=== PATIENT | female | born 1955 | race Caucasian/White ===

== ENCOUNTER 2023-10-01 19:06 | Inpatient (IN) | payer MEDICARE, SELFPAY ==
[2023-10-01 21:10] LABS: #Monocytes 0.7 10x3/uL (0.0-1.1); %Basophils 0.7 % (0.0-2.0); %Eosinophils 0.7 % (0.0-6.0); %Lymphocytes 20.8 % (18.0-47.0); %Monocytes 11.7 % (0.0-10.0); %Neutrophils 65.9 % (40.0-75.0); Hematocrit 45.7 % (34.9-44.5); Hemoglobin 15.7 g/dL (12.0-15.5); Mean Corpuscular HGB CONC 34.4 g/dL (32.0-36.0); Mean Corpuscular Hemoglobin 29.7 pg (27.0-33.0); Mean Corpuscular Volume 86.6 fl (81.6-98.3); Mean Platelet Volume 9.5 fl (7.4-10.4); Platelet Count 321 10x3/uL (150-450); RBC Distribution Width 12.7 % (11.5-14.5); Red Blood Cell (RBC) Count 5.28 10x6/uL (3.90-5.03); White Blood Cell (WBC) Count 6.1 10x3/uL (3.5-10.5)
[2023-10-01 21:21] LABS: Bilirubin 3+ (Negative); Blood, Urine 150 (Negative); Clarity Clear (Clear); Glucose, Urine (Dipstick) Normal (Negative); Ketone, Urine 150 mg/dL (Negative); Leukocyte 25 (Negative); Nitrite Negative (Negative); Protein, Urine (Dipstick) 30 mg/dl (Neg-Trace); Specific Gravity, Urine 1.025 (1.005-1.030)
[2023-10-01 21:27] LABS: ALT (SGPT) 870 U/L (8-55); AST (SGOT) 578 U/L (5-34); Albumin 5.1 g/dL (3.4-4.8); Alkaline Phosphatase 179 U/L (40-110); Anion Gap 16 mmol/L (10-20); BUN (Urea Nitrogen) 8 mg/dL (9.8-20.1); Bilirubin, Total 3.9 mg/dL (0.2-1.2); Calc. Creatinine Clearance 0 mL/min (70-130); Calcium 10.3 mg/dL (7.8-10.44); Carbon Dioxide 23 mmol/L (23-31); Chloride 102 mmol/L (98-107); Estimated GFR 93; Globulin 3.5 g/dL (2.4-3.5); Glucose 100 mg/dL (80-115); Lipase 37 U/L (8-78); Magnesium 2.5 mg/dL (1.6-2.6); Potassium 3.3 mmol/L (3.5-5.1); Protein, Total 8.6 g/dL (5.8-8.1); Sodium 138 mmol/L (136-145)
[2023-10-01 21:28] LABS: Troponin I Less than 0.010 ng/mL (< 0.028)
[2023-10-01] MEDS ORDERED: Ondansetron PF 4 MG/2 ML Vial ONE (21:41)
[2023-10-01] MEDS ORDERED: Morphine 4 MG/ML VIAL ONE (21:42)
[2023-10-01 22:09] LABS: Bacteria/HPF 2+ HPF (None Seen); CAUTI Indications for Culture Pelvic or flank pain; Squamous Epithelial 0-3 HPF (0-3)
[2023-10-01 22:10] LABS: Mucous/LPF 3+ LPF (<2+); Urine Culture Reflex No No
[2023-10-01] MEDS ORDERED: LevoFLOXacin D5W 500 mg (100 mL) BAG ONE (22:25)
[2023-10-02 00:04] VITALS: BMI 27.3
[2023-10-02] MEDS ORDERED: EPINEPHrine 1 MG/ML VIAL ONE (10:41)
[2023-10-02] MEDS ORDERED: Bupivacaine PF 0.5% 30 ML VIAL ONE (10:41)
[2023-10-02] MEDS ORDERED: Iopamidol 30 ML ONE (11:42)
[2023-10-02] MEDS ORDERED: Glucagon 1 MG/ML KIT ONE ×2 (11:42→13:09)
[2023-10-02] MEDS ORDERED: Fentanyl 250 MCG/5 ML VIAL ONE (12:26)
[2023-10-02] MEDS ORDERED: Dexamethasone 20 MG/5 ML VIAL ONE (12:26)
[2023-10-02] MEDS ORDERED: Ondansetron PF 4 MG/2 ML Vial ONE (12:26)
[2023-10-02] MEDS ORDERED: Rocuronium Bromide 10 MG/ML (10ML VIAL) ONE (12:26)
[2023-10-02] MEDS ORDERED: Lidocaine 1% PF 5 ML VIAL ONE (12:26)
[2023-10-02] MEDS ORDERED: SUGAMMADEX SODIUM 200 MG/2 ML VIAL ONE ×2 (12:28→14:01)
[2023-10-02] MEDS ORDERED: Lidocaine 4% PF 5 ML AMP ONE (12:29)
[2023-10-02] MEDS ORDERED: Indomethacin 50 MG SUPP ONE (13:10)
[2023-10-02] MEDS ORDERED: HYDROcodone/Acetaminophen 10/325 mg Tablet PO PRN (14:07)
[2023-10-02] MEDS ORDERED: Ondansetron PF 4 MG/2 ML Vial IVP PRN (14:07)
[2023-10-02] MEDS ORDERED: Calcium Carbonate 500 MG ChewTAB PO PRN (14:07)
[2023-10-02] MEDS ORDERED: Dextrose 5% in Water 1,000 ML IV PRN (14:07)
[2023-10-02] MEDS ORDERED: Acetaminophen 325 MG TAB PO PRN (14:07)
[2023-10-02] MEDS ORDERED: Morphine 4 MG/ML VIAL SLOW IVP PRN (14:07)
[2023-10-02] MEDS ORDERED: Mag-Al 1200 mg/1200 mg/30 ML UDCUP PO PRN (14:07)
[2023-10-02] MEDS ORDERED: Glucagon 1 MG/ML KIT IM PRN (14:07)
[2023-10-02] MEDS ORDERED: Dextrose 50% Abboject 50 ML SYRINGE SLOW IVP PRN (14:07)
[2023-10-02] MEDS ORDERED: hydrALAZINE 20 MG/ML VIAL SLOW IVP PRN (14:07)
[2023-10-02] MEDS ORDERED: Promethazine HCl 25 MG/ML VIAL IM PRN (14:07)
[2023-10-02] MEDS ORDERED: FLU VACC QS2023(65UP)/MF59C/PF 60 MCG/0.5 ML SYRINGE IM ONE (20:15)
[2023-10-02] MEDS: Famotidine 20 MG TAB PO SCH (21:49)
[2023-10-02] MEDS: Lactated Ringer's 1,000 ML IV SCH (21:51)
[2023-10-03 06:20] LABS: #Monocytes 1.3 10x3/uL (0.0-1.1); #Neutrophils 6.7 10x3/uL (1.5-8.4); %Basophils 0.2 % (0.0-2.0); %Eosinophils 0.2 % (0.0-6.0); %Lymphocytes 17.6 % (18.0-47.0); %Monocytes 13.1 % (0.0-10.0); %Neutrophils 68.5 % (40.0-75.0); Hematocrit 40.7 % (34.9-44.5); Mean Corpuscular HGB CONC 34.4 g/dL (32.0-36.0); Mean Corpuscular Hemoglobin 30.1 pg (27.0-33.0); Mean Corpuscular Volume 87.5 fl (81.6-98.3); Mean Platelet Volume 9.8 fl (7.4-10.4); Platelet Count 293 10x3/uL (150-450); RBC Distribution Width 12.7 % (11.5-14.5); Red Blood Cell (RBC) Count 4.65 10x6/uL (3.90-5.03); White Blood Cell (WBC) Count 9.8 10x3/uL (3.5-10.5)
[2023-10-03 06:35] LABS: ALT (SGPT) 457 U/L (8-55); AST (SGOT) 145 U/L (5-34); Alkaline Phosphatase 138 U/L (40-110); Anion Gap 14 mmol/L (10-20); BUN (Urea Nitrogen) 9 mg/dL (9.8-20.1); Bilirubin, Total 0.9 mg/dL (0.2-1.2); Calc. Creatinine Clearance 79 mL/min (70-130); Calcium 9.1 mg/dL (7.8-10.44); Carbon Dioxide 23 mmol/L (23-31); Chloride 105 mmol/L (98-107); Estimated GFR 95; Globulin 2.8 g/dL (2.4-3.5); Glucose 84 mg/dL (80-115); Lipase 31 U/L (8-78); Potassium 3.6 mmol/L (3.5-5.1); Protein, Total 6.8 g/dL (5.8-8.1); Sodium 138 mmol/L (136-145)
[2023-10-03 09:31] VITALS: BP 128/64; TEMP 98.9
== END 2023-10-03 11:49 | disposition home or self-care (01) | DRG 419 ==
LOC: CSHERS 19:06 → CSHERHOLD 22:23 → CSHTELE 10-02 17:26
PROVIDERS: ADMIT Specialist; ATTEND Specialist
PROC: 0FT44ZZ Resection of Gallbladder, Percutaneous Endoscopic Approach (ICD-10-PCS; principal; 2023-10-02)
PROC: 0FC98ZZ Extirpation of Matter from Common Bile Duct, Via Natural or Artificial Opening Endoscopic (ICD-10-PCS; 2023-10-02)
PROC: 3E033XZ Introduction of Vasopressor into Peripheral Vein, Percutaneous Approach (ICD-10-PCS; 2023-10-02)
DX: K80.70 Calculus of gallbladder and bile duct without cholecystitis without obstruction (principal); Z90.49 Acquired absence of other specified parts of digestive tract; Z85.9 Personal history of malignant neoplasm, unspecified
CPT/HCPCS: 36415; 47532; 74330; 76705; 80053; 81001; 83690; 83735; 84484; 85025; 88304; 93005; C1713; C1725; J0171; J0665; J1100; J1611; J1956; J2270; J2405; J3010; J7120; Q9967